=== PATIENT | male | born 1985 | race Caucasian/White ===

== ENCOUNTER → 2020-01-28 14:50 | Outpatient (BNVA) | payer BC, SELFPAY | PROVIDERS: Family Provider Nurse Practitioner Family; PCP Nurse Practitioner Family; Visit Provider Nurse Practitioner Family | DX: Z11.59 Encounter for screening for other viral diseases (principal); Z20.828 Contact with and (suspected) exposure to other viral communicable diseases; J06.9 Acute upper respiratory infection, unspecified | CPT/HCPCS: 87635 ==

== ENCOUNTER 2021-04-22 08:11 | Outpatient (CLI) | payer BC, SELFPAY ==
[2021-04-22 08:31] VITALS: BP 144/88; PULSE 96; RESP 18; TEMP 36.8; O2SAT 96; BMI 34.8
[2021-04-22 09:10] VITALS: BP 123/71; PULSE 97; RESP 16; O2SAT 96
[2021-04-22 09:59] VITALS: BP 133/87; PULSE 84; RESP 16; TEMP 36.2; O2SAT 97
== END 2021-04-22 08:12 | disposition home or self-care (01) ==
PROVIDERS: PCP Nurse Practitioner Family; Visit Provider Nurse Practitioner Family
DX: U07.1 COVID-19 (principal)
CPT/HCPCS: 96365

== ENCOUNTER 2021-04-27 14:26 | Emergency (ER) | payer BC, SELFPAY ==
[2021-04-27 14:58] VITALS: BP 132/87; PULSE 106; RESP 18; TEMP 37.2; O2SAT 96; BMI 34.8
--- NOTE | 2021-04-27 15:07 | XR_ITS ---
WS: [id number] Exam: XR chest 1V portable [id number] Date/Time of Exam: 04/27/2021 3:07 PM Reason For Exam: covid, No priors. Findings: The lungs are clear and fully expanded. Costophrenic angles are sharp. No infiltrates. Bronchovascula r relief appears normal. Cardiac silhouette is unremarkable. Bony elements are intact. XR/XR chest 1V portable [id number] IMPRESSION: Unremarkable chest radiograph.
[2021-04-27 16:02] VITALS: O2SAT 95
--- NOTE | 2021-04-28 07:38 | W.ED.COVID ---
Documented by User: ABEL Chiu 04/28/21 07:41 HPI - COVID General: Chief Complaint: COVID symptoms Stated Complaint: COVID+; sent over from [facility] Time Seen by Provider: 04/27/21 15:40 Triage information: No fever, cough or shortness of breath. No known COVID + exposure last 14 days History of Present Illness: HPI Narrative: Patient COVID-positive +7 days. Patient is already received MCA infusion. Patient seen in [facility] today apparently their x-ray machine was down and sent here for chest x-ray to rule out pneumonia. Patient complains about cough fatigue. Denies fever chills or shortness of breath MD complaint: known COVID positive Prior testing date: 04/20/21 COVID 19 common symptoms: positive non-productive cough and fatigue; negative headache(s), throat pain, nasal congestion, nausea or vomiting COVID 19 other sytmptoms: negative chest pain Onset (ago): week(s) Severity: mild Pertinent comorbid conditions: hypertension COVID Results: SARS-CoV-2 RNA (RT-PCR) Not detected (NOT DETECTED) 01/28/20 14:50 01/28/20 Review of Systems Const: Reports: fatigue Eyes: Denies: change in vision or blurry vision ENMT: Denies: throat pain or nasal congestion Card: Denies: chest pain or dyspnea on exertion Resp: Reports: non-productive cough GI: Denies: abdominal pain, nausea or vomiting : Denies: difficulty urinating Musc: Denies: extremity pain Skin/Breast: Denies: rash Neuro: Denies: headache(s) Psych: Denies: anxiety or depression Ed/Lymph: Denies: easy bruising Physical Exam Const: COMMON NORMALS: no acute distress GENERAL APPEARANCE: cooperative Resp: COMMON NORMALS: normal respiratory effort EFFORT & INSPECTION: Yes able to speak in complete sentences Cardio: RATE: tachycardic Psych: COMMON NORMALS: mental status grossly normal Course Vital Signs: Vital signs: Vital Signs Temperature 99.0 F 04/27/21 14:58 Pulse Rate 106 H 04/27/21 14:58 Respiratory Rate 18 04/27/21 14:58 Blood Pressure 132/87 04/27/21 14:58 Pulse Oximetry 95 04/27/21 16:02 MDM - COVID MDM Narrative: Medical decision making narrative: Patient sent here to rule out pneumonia. Patient seen at [facility] apparently there x-ray machine was down not able to get a chest x-ray. Chest x-ray was done here was completely clear patient is complain about a cough and fatigue. Denies shortness of breath, fever, chills. Patient has had steroids. Has had MCA infusion. Patient requesting a note to be off at least the rest week and he does have FMLA through within the month. Patient works as wagon driver. Patient also requesting cough medicine. COVID Results: SARS-CoV-2 RNA (RT-PCR) Not detected (NOT DETECTED) 01/28/20 14:50 01/28/20 Discharge Plan Discharge Patient Disposition: Home Clinical Impression: COVID-19 Condition: Stable Prescriptions: New Decadron 6 mg tablet 6 mg PO DAILY Qty: 7 RF: 0 ProAir HFA 90 mcg/actuation HFA aerosol inhaler 2 inh inhalation Q4H PRN (Reason: shortness of breath or wheezing) Qty: 6.7 RF: 0 Tessalon Perles 100 mg capsule 100 mg PO TID PRN (Reason: cough) Qty: 14 RF: 0 No Action guaifenesin [Mucinex] 600 mg tablet extended release 12hr 600 mg PO BID RF: 0 lisinopril 5 mg tablet 5 mg PO DAILY RF: 0 loratadine [Claritin] 10 mg tablet 10 mg PO DAILY RF: 0 Vyvanse 30 mg capsule 30 mg PO DAILY RF: 0 Discharge Orders: Discharge ED (Routine); Ordered 04/27/21 Ordered By: Case Jackson Referrals: Grecia Drew FNP [Referring] - Discharge Diet: Usual diet Discharge Activity: Increase activity as tolerated Patient Instructions: COVID-19: Slow the Coronavirus Spread (ED) Activity Restrictions/Additional Instructions: Follow-up with medical provider as directed. Take medications as prescribed. Return to the ER or your medical provider if condition worsens. Please read and understand discharge instructions. If any questions ask please. Stand Alone Forms: Work/School Release Coding Level of Care Code ED Manager Local for Amisha Fwd Exam Expanded Problem Focused Documented by User: Andres Bonds DO 04/30/21 19:22 HPI - COVID General: Chief Complaint: COVID symptoms Stated Complaint: COVID+; sent over from [facility] Time Seen by Provider: 04/27/21 15:40 COVID Results: SARS-CoV-2 RNA (RT-PCR) Not detected (NOT DETECTED) 01/28/20 14:50 01/28/20 Course Vital Signs: Vital signs: Vital Signs Temperature 99.0 F 04/27/21 14:58 Pulse Rate 106 H 04/27/21 14:58 Respiratory Rate 18 04/27/21 14:58 Blood Pressure 132/87 04/27/21 14:58 Pulse Oximetry 95 04/27/21 16:02 MDM - COVID MDM Narrative: Medical decision making narrative: This patient was originally seen by ABEL Coelho. I agree with his history, evaluation, and treatment. COVID Results: SARS-CoV-2 RNA (RT-PCR) Not detected (NOT DETECTED) 01/28/20 14:50 01/28/20 Discharge Plan Discharge Patient Disposition: Home Clinical Impression: COVID-19 Condition: Stable Prescriptions: New Decadron 6 mg tablet 6 mg PO DAILY Qty: 7 RF: 0 ProAir HFA 90 mcg/actuation HFA aerosol inhaler 2 inh inhalation Q4H PRN (Reason: shortness of breath or wheezing) Qty: 6.7 RF: 0 Tessalon Perles 100 mg capsule 100 mg PO TID PRN (Reason: cough) Qty: 14 RF: 0 No Action guaifenesin [Mucinex] 600 mg tablet extended release 12hr 600 mg PO BID RF: 0 lisinopril 5 mg tablet 5 mg PO DAILY RF: 0 loratadine [Claritin] 10 mg tablet 10 mg PO DAILY RF: 0 Vyvanse 30 mg capsule 30 mg PO DAILY RF: 0 Discharge Orders: Discharge ED (Routine); Ordered 04/27/21 Ordered By: Case Jackson Referrals: Grecia Drew FNP [Referring] - Discharge Diet: Usual diet Discharge Activity: Increase activity as tolerated Patient Instructions: COVID-19: Slow the Coronavirus Spread (ED) Activity Restrictions/Additional Instructions: Follow-up with medical provider as directed. Take medications as prescribed. Return to the ER or your medical provider if condition worsens. Please read and understand discharge instructions. If any questions ask please. Stand Alone Forms: Work/School Release Coding Level of Care Code ED Manager Local for Amisha Fwd Exam Expanded Problem Focused
== END 2021-04-27 16:03 | disposition home or self-care (01) ==
PROVIDERS: Emergency Provider Nurse Practitioner Family; PCP Family Medicine
DX: U07.1 COVID-19 (principal)
CPT/HCPCS: 71045; 99282